=== PATIENT | female | born 2000 | race Two or more races ===

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

== ENCOUNTER 2019-11-28 11:06 | Outpatient (CLI) | payer OTHER | END 2019-11-28 14:56 | disposition home or self-care (01) | LOC: RAD 11:06 | DX: M54.2 Cervicalgia (principal); M54.5 Low back pain; M54.6 Pain in thoracic spine ==